=== PATIENT | female | born 1975 | race American Indian/Alaskan Native ===

== ENCOUNTER 2017-09-10 22:51 | Emergency (ER) | payer MEDICAID ==
[2017-09-10] MEDS ORDERED: Ondansetron 4 MG Tab.DIS PO ONE (22:52)
[2017-09-10] MEDS ORDERED: Phenazopyridine 95 MG Tab PO ONE (22:52)
[2017-09-10 23:10] VITALS: BP 132/62
[2017-09-10] MEDS ORDERED: Ondansetron 4 MG/2 ML SDV IV ONE (23:13)
[2017-09-10 23:45] LABS: CHLORIDE,CL 108 mmol/L (101-111); SODIUM,NA 138 mmol/L (135-145)
[2017-09-11] MEDS ORDERED: Ciprofloxacin 500 MG Tab PO ONE (00:10)
[2017-09-11] MEDS ORDERED: Potassium Chloride 10 MEQ Tab.ER PO ONE (00:10)
[2017-09-11] MEDS ORDERED: Phenazopyridine 95 MG Tab PO ONE (00:10)
[2017-09-11] MEDS ORDERED: Ketorolac 30 MG/ML SDV IVPUSH ONE (00:10)
[2017-09-11] MEDS ORDERED: Ondansetron 4 MG Tab.DIS ONE (00:54)
[2017-09-11] MEDS ORDERED: Phenazopyridine 95 MG Tab ONE (00:54)
--- NOTE | 2017-09-11 01:06 | EDM.PDOC ---
ED HPI GENERAL MEDICAL PROBLEM - General Chief Complaint: Flank Pain Stated Complaint: KIDNEY PROBLEM [id number] Time Seen by Provider: 09/10/17 23:10 Source of Information: Reports: Patient History Limitations: Reports: No Limitations - History of Present Illness INITIAL COMMENTS - FREE TEXT/NARRATIVE: ED with c/o kidney infection, has had flank pain today, lower abdominal pain and burning with urination for 2 days. Chills and sharp pain with urination tonight. Has been hospitalized in past with infections. 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: Musculoskeletal History: Reports: Back Pain, Chronic, Neck Pain, Chronic Psychiatric History: Reports: Depression Hematologic History: Reports: Anemia, Other (See Below) Other Hematologic History: Has NOT been taking iron supplements Social & Family History - Family History Family Medical History: Noncontributory - Tobacco Use Smoking Status *Q: Former Smoker Used Tobacco, but Quit: No Second Hand Smoke Exposure: No - Caffeine Use Caffeine Use: Reports: Soda - Alcohol Use Days Per Week of Alcohol Use: 0 Date of Last Drink: 09/10/17 - Recreational Drug Use Recreational Drug Use: No ED ROS GENERAL - Review of Systems Review Of Systems: ROS reveals no pertinent complaints other than HPI. Constitutional: Reports: Chills HEENT: Reports: No Symptoms Respiratory: Reports: No Symptoms Cardiovascular: Reports: No Symptoms Endocrine: Reports: Fatigue GI/Abdominal: Reports: Abdominal Pain, Decreased Appetite, Nausea. Denies: Vomiting : Reports: Dysuria, Flank Pain, Frequency, Pain, Urgency Musculoskeletal: Reports: No Symptoms ED EXAM, RENAL/ - Physical Exam Exam: See Below Exam Limited By: No Limitations General Appearance: Alert, Mild Distress Eye Exam: Bilateral Eye: EOMI Ears: Normal External Exam Nose: Normal Inspection Throat/Mouth: Normal Inspection Head: Atraumatic, Normocephalic Neck: Normal Inspection Respiratory/Chest: No Respiratory Distress, Lungs Clear, Normal Breath Sounds Cardiovascular: Normal Peripheral Pulses, Regular Rate, Rhythm GI/Abdominal: Normal Bowel Sounds, Soft, Tender (suprapubic). No: Distended, Guarding Back Exam: CVA Tenderness (L), CVA Tenderness (R) Extremities: Normal Inspection Neurological: Alert, Oriented, Normal Cognition Psychiatric: Normal Affect, Normal Mood Skin Exam: Warm, Dry, Intact, Normal Color Course - Vital Signs Last Recorded V/S: Last Vital Signs Temp 98 F 09/10/17 23:00 Pulse 93 09/10/17 23:00 Resp 20 09/10/17 23:00 BP 132/62 09/10/17 23:00 Pulse Ox 100 09/10/17 23:00 - Orders/Labs/Meds Labs: Laboratory Tests 09/10/17 09/10/17 09/10/17 Range/Units 21:55 23:18 23:18 WBC 9.3 (5.0-10.0) 10^3/uL RBC 4.34 (4.2-5.4) 10^6/uL Hgb 12.1 D (12.0-16.0) g/dL Hct 37.0 (37.0-47.0) % MCV 85.3 D (80-100) fL MCH 27.9 (27.0-34.0) pg MCHC 32.7 L (33.0-35.0) g/dL Plt Count 246 (150-450) 10^3/uL Neut % (Auto) 80.9 H (42.2-75.2) % Lymph % (Auto) 11.6 L (20.5-50.1) % [place] % (Auto) 5.5 (2-8) % Eos % (Auto) 1.9 (1.0-3.0) % Baso % (Auto) 0.1 (0.0-1.0) % Sodium 138 (135-145) mmol/L Potassium 3.2 L (3.6-5.0) mmol/L Chloride 108 (101-111) mmol/L Carbon Dioxide 22.0 (21.0-31.0) mmol/L Anion Gap 11.2 BUN 19 H (7-18) mg/dL Creatinine 0.7 (0.6-1.3) mg/dL Est Cr Clr Drug Dosing 102.85 mL/min Estimated GFR (MDRD) > 60 BUN/Creatinine Ratio 27.14 Glucose 119 H (74-105) mg/dL Lactic Acid (0.5-2.2) mmol/L Calcium 8.0 L (8.4-10.2) mg/dl Total Bilirubin 0.6 (0.2-1.0) mg/dL AST 17 (10-42) IU/L ALT 14 (10-60) IU/L Alkaline Phosphatase 58 (42-121) IU/L Total Protein 7.2 (6.7-8.2) g/dl Albumin 3.9 (3.2-5.5) g/dl Globulin 3.3 Albumin/Globulin Ratio 1.18 Urine Color Yellow (YELLOW) Urine Appearance Cloudy (CLEAR) Urine pH 5.0 (5.0-9.0) Ur Specific [place] >= 1.030 (1.005-1.030) Urine Protein 30 H (NEGATIVE) Urine Glucose (UA) Negative (NEGATIVE) Urine Ketones 15 H (NEGATIVE) Urine Occult Blood Negative (NEGATIVE) Urine Nitrite Negative (NEGATIVE) Urine Bilirubin Small H (NEGATIVE) Urine Urobilinogen 0.2 (0.2-1.0) mg/dL Ur Leukocyte Esterase Trace H (NEGATIVE) Urine RBC 0-5 /HPF Urine WBC 10-20 H (0-5/HPF) /HPF Ur Epithelial Cells Moderate H /HPF Urine Bacteria Many H (0-FEW/HPF) /HPF 09/10/17 Range/Units 23:18 WBC (5.0-10.0) 10^3/uL RBC (4.2-5.4) 10^6/uL Hgb (12.0-16.0) g/dL Hct (37.0-47.0) % MCV (80-100) fL MCH (27.0-34.0) pg MCHC (33.0-35.0) g/dL Plt Count (150-450) 10^3/uL Neut % (Auto) (42.2-75.2) % Lymph % (Auto) (20.5-50.1) % [place] % (Auto) (2-8) % Eos % (Auto) (1.0-3.0) % Baso % (Auto) (0.0-1.0) % Sodium (135-145) mmol/L Potassium (3.6-5.0) mmol/L Chloride (101-111) mmol/L Carbon Dioxide (21.0-31.0) mmol/L Anion Gap BUN (7-18) mg/dL Creatinine (0.6-1.3) mg/dL Est Cr Clr Drug Dosing mL/min Estimated GFR (MDRD) BUN/Creatinine Ratio Glucose (74-105) mg/dL Lactic Acid 0.9 (0.5-2.2) mmol/L Calcium (8.4-10.2) mg/dl Total Bilirubin (0.2-1.0) mg/dL AST (10-42) IU/L ALT (10-60) IU/L Alkaline Phosphatase (42-121) IU/L Total Protein (6.7-8.2) g/dl Albumin (3.2-5.5) g/dl Globulin Albumin/Globulin Ratio Urine Color (YELLOW) Urine Appearance (CLEAR) Urine pH (5.0-9.0) Ur Specific [place] (1.005-1.030) Urine Protein (NEGATIVE) Urine Glucose (UA) (NEGATIVE) Urine Ketones (NEGATIVE) Urine Occult Blood (NEGATIVE) Urine Nitrite (NEGATIVE) Urine Bilirubin (NEGATIVE) Urine Urobilinogen (0.2-1.0) mg/dL Ur Leukocyte Esterase (NEGATIVE) Urine RBC /HPF Urine WBC (0-5/HPF) /HPF Ur Epithelial Cells /HPF Urine Bacteria (0-FEW/HPF) /HPF Meds: Medications Discontinued Medications Generic Name Dose Route Start Last Admin Trade Name Freq PRN Reason Stop Dose Admin Ciprofloxacin 500 mg 09/11/17 00:10 09/11/17 00:21 Ciprofloxacin Hcl PO 09/11/17 00:11 500 mg ONETIME ONE Administration Ketorolac Tromethamine 30 mg 09/11/17 00:10 09/11/17 00:21 Toradol IVPUSH 09/11/17 00:11 30 mg ONETIME ONE Administration Ondansetron HCl 4 mg 09/10/17 23:13 09/10/17 23:24 Zofran IV 09/10/17 23:14 4 mg ONETIME ONE Administration Ondansetron HCl Confirm 09/11/17 00:54 Zofran Odt Administered 09/11/17 00:55 Dose 8 mg .ROUTE .STK-MED ONE Ondansetron HCl 8 mg 09/10/17 22:52 Zofran Odt PO 09/10/17 22:53 .STK-MED ONE Phenazopyridine HCl 190 mg 09/11/17 00:10 09/11/17 00:21 Urinary Pain Relief PO 09/11/17 00:11 190 mg ONETIME ONE Administration Phenazopyridine HCl Confirm 09/11/17 00:54 Urinary Pain Relief Administered 09/11/17 00:55 Dose 190 mg .ROUTE .STK-MED ONE Phenazopyridine HCl 190 mg 09/10/17 22:52 Urinary Pain Relief PO 09/10/17 22:53 .STK-MED ONE Potassium Chloride 20 meq 09/11/17 00:10 09/11/17 00:21 Klor-Con 10 PO 09/11/17 00:11 20 meq ONETIME ONE Administration Departure - Departure Time of Disposition: 01:03 Disposition: Home, Self-Care 01 Condition: Good, Fair Clinical Impression: Pyelonephritis - Discharge Information Instructions: Pyelonephritis, Adult, [id number] Referrals: Shelley Antunez NP [Primary Care Provider] - Forms: ED Department Discharge Additional Instructions: zofran 4mg ODT one every 6 hours as needed for nausea pyridium 200mg one every 8 hours as needed for urinary symptoms Cipro 500mg one twice daily for one week clinic follow up mid week, sooner if symptoms worsen tylenol or ibuprofen for discomfort
== END 2017-09-11 01:10 | disposition home or self-care (01) ==
LOC: DL.ED 22:51
DX: N12 Tubulo-interstitial nephritis, not specified as acute or chronic (principal); Z88.0 Allergy status to penicillin; Z79.899 Other long term (current) drug therapy; Z87.891 Personal history of nicotine dependence
CPT/HCPCS: 36415; 80053; 81001; 83605; 85025; 87086; 96374; 96375; 99284; A9270; J1885; J2405

== ENCOUNTER 2017-12-18 13:52 | Emergency (ER) | payer MEDICAID ==
[2017-12-18 13:59] VITALS: BP 101/55
--- NOTE | 2017-12-18 14:24 | EDM.PDOC ---
ED HPI GENERAL MEDICAL PROBLEM - General Chief Complaint: Laceration Stated Complaint: [id number] SLIT FINGER OPEN AT HOME Time Seen by Provider: 12/18/17 14:05 Source of Information: Reports: Patient History Limitations: Reports: No Limitations - History of Present Illness INITIAL COMMENTS - FREE TEXT/NARRATIVE: This 42 yo female patient reports to the ED with a laceration to her right thumb. The patient reports that her injury happened at about 0100 this morning ( 13 hours prior to reporting to the ED). The patient reports that she was washing dishes when a bowl broke and cut her hand. Onset: Today Onset Date: 12/18/17 Onset Time: 01:00 Duration: Constant Location: Reports: Upper Extremity, Right Quality: Reports: Ache, Dull Severity: Mild Improves with: Reports: None Worsens with: Reports: None Associated Symptoms: Reports: No Other Symptoms Right 1-Thumb Pain Score (Numeric/FACES): 5 - Related Data Allergies Allergy/AdvReac Type Severity Reaction Status Date / Time Penicillins Allergy Nausea and Verified 12/18/17 13:59 Vomiting Home Meds: Home Meds . 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 ED EXAM, SKIN/RASH Exam: See Below Exam Limited By: No Limitations General Appearance: Alert, WD/WN, Mild Distress Eye Exam: Bilateral Eye: EOMI, Normal Inspection, PERRL Ears: Normal External Exam, Normal Canal, Hearing Grossly Normal, Normal TMs Nose: Normal Inspection, Normal Mucosa, No Blood Throat/Mouth: Normal Inspection, Normal Lips, Normal Teeth, Normal Gums, Normal Oropharynx, Normal Voice, No Airway Compromise Head: Atraumatic, Normocephalic Neck: Normal Inspection, Supple, Non-Tender, Full Range of Motion Respiratory/Chest: No Respiratory Distress, Lungs Clear, Normal Breath Sounds, No Accessory Muscle Use, Chest Non-Tender Cardiovascular: Normal Peripheral Pulses, Regular Rate, Rhythm, No Edema, No Gallop, No JVD, No Murmur, No Rub GI/Abdominal: Normal Bowel Sounds, Soft, Non-Tender, No Organomegaly, No Distention, No Abnormal Bruit, No Mass (Female) Exam: Deferred Rectal (Female) Exam: Deferred Back Exam: Normal Inspection, Full Range of Motion, NT Extremities: Normal Inspection, Normal Range of Motion, Non-Tender, No Pedal Edema, Normal Capillary Refill Neurological: Alert, Oriented, CN II-XII Intact, Normal Cognition, Normal Gait, Normal Reflexes, No Motor/Sensory Deficits Psychiatric: Normal Affect, Normal Mood Skin: Warm, Dry, Intact, Normal Color, No Rash Location, Skin: Upper Extremity, Right (right thumb laceration.) Characteristics: Linear Lymphatic: No Adenopathy ED SKIN PROCEDURES - Laceration/Wound Repair Right Finger Lac/Wound length In cm: 2.0 Appearance: Subcutaneous Distal NVT: Neuro & Vascular Intact Skin Prep: Chlorhexidine (Hibiciens) Exploration/Debridement/Repair: Wound Explored, In a Bloodless Field Closed with: Steri-Strips Sterile Dressing Applied: Nurse Tetanus Status Addressed: Yes Complications: No Course - Vital Signs Last Recorded V/S: Last Vital Signs Temp 36.8 C 12/18/17 13:56 Pulse 69 12/18/17 13:56 Resp 18 12/18/17 13:56 BP 101/55 L 12/18/17 13:56 Pulse Ox 99 12/18/17 13:56 Departure - Departure Time of Disposition: 14:24 Disposition: Home, Self-Care 01 Condition: Good Clinical Impression: Laceration of right thumb Qualifiers: Encounter type: initial encounter Damage to nail status: without damage Foreign body presence: without foreign body Qualified Code(s): S61.011A - Laceration without foreign body of right thumb without damage to nail, initial encounter - Discharge Information Instructions: Laceration Care, Adult, [id number], Stitches, [place], or Adhesive Wound Closure, [id number] Care Plan Goals: The patient was advised of the examination results during the visit. The patient 's wound was closed with steri-strips while in the ED. The patient was encouraged to keep the area clean and dry over the next 24 hours. If the patient has any additional symptoms or concerns, the patient should follow-up with her primary care facility or return to the emergency department.
== END 2017-12-18 14:29 | disposition home or self-care (01) ==
LOC: DL.ED 13:52
DX: S61.011A Laceration without foreign body of right thumb without damage to nail, initial encounter (principal); Z88.0 Allergy status to penicillin; W26.8XXA Contact with other sharp object(s), not elsewhere classified, initial encounter; Y93.G1 Activity, food preparation and clean up
CPT/HCPCS: 12001; 40830; 99283

== ENCOUNTER 2019-06-27 08:01 | Day surgery (SDC) | payer MEDICAID, OTHER ==
[~2019-06-27 08:01] MED LIST: Clindamycin Phosphate 600 MG in Sodium Chloride 0.9% 100 ML IV ONE; Lactated Ringers 1,000 ML IV SCH; Sodium Chloride 0.9% 10 ML Syringe FLUSH PRN
[2019-06-27] MEDS ORDERED: Propofol 1,000 MG/100 ML SDV IV ONE (08:02)
[2019-06-27] MEDS ORDERED: fentaNYL 100 MCG/2 ML SDV IV ONE (08:02)
[2019-06-27] MEDS ORDERED: Midazolam 1 MG/ML 2 ML SDV IV ONE (08:02)
[2019-06-27] MEDS ORDERED: Ondansetron 4 MG/2 ML SDV IV ONE (08:02)
[2019-06-27] MEDS ORDERED: Bupivacaine 0.5% 30 ML SDV ONE ×2 (08:02→09:35)
[2019-06-27] MEDS ORDERED: Lidocaine 1% 30 ML SDV ONE ×2 (08:02→09:35)
[2019-06-27] MEDS ORDERED: Ketorolac 30 MG/ML SDV IVPUSH ONE (08:02)
[2019-06-27] MEDS ORDERED: Clindamycin Phosphate 600 MG/4 ML SDV ONE (08:41)
[2019-06-27] MEDS ORDERED: Sodium Chloride 0.9% 100 ML ONE (08:41)
[2019-06-27] MEDS ORDERED: Bupivacaine 0.5% 30 ML SDV INJECT ONE ×3 (10:18→11:48)
[2019-06-27] MEDS ORDERED: Lidocaine 1% 30 ML SDV INJECT ONE ×3 (10:18→11:48)
[2019-06-27 12:07] VITALS: PULSE 67
[2019-06-27] MEDS ORDERED: Acetaminophen/oxyCODONE 325-5 MG Tab PO PRN (12:22)
--- NOTE | 2019-06-27 12:24 | PCM.OPNOTE ---
- General Post-Op/Procedure Note Date of Surgery/Procedure: 06/27/19 Operative Procedure(s): right foot 1st metatarsal osteotomy/bunionectomy and right foot plantar fascia release Pre Op Diagnosis: right foot bunion and plantar fasciitis Post-Op Diagnosis: morgan Anesthesia Technique: Local, MAC Primary Surgeon: Hina Vazquez Stephens Anesthesia Provider: Juan Monahan EBL in mLs: 5 Complications: none Condition: Good Free Text/Narrative:: Intake & Output 06/26/19 06/27/19 06/27/19 22:59 06:59 14:59 Intake Total 100 Balance 100 Pt tolerated procedure well and was transported to recovery with vascular status intact to right foot. stoney 3.0 cannulated screws to 1st metatarsal. Well padded compression dressing applied with foot in neutral DF.
[2019-06-27 13:46] VITALS: BP 105/68
--- NOTE | 2019-06-28 09:30 | OR ---
DATE: 06/27/2019 PREOPERATIVE DIAGNOSES: 1. Right foot painful bunion. 2. Right foot chronic plantar fasciitis. POSTOPERATIVE DIAGNOSES: 1. Right foot painful bunion. 2. Right foot chronic plantar fasciitis. PROCEDURES PERFORMED: 1. Right foot 1st metatarsal osteotomy/bunionectomy. 2. Right foot plantar fascia release. ANESTHESIA: Local MAC with preoperative local block of 10 mL 1:1 mixture of 1% lidocaine plain and 0.5% Marcaine plain. TOURNIQUET TIME: 83 minutes, pneumatic ankle tourniquet. ESTIMATED BLOOD LOSS: Minimal. SPECIMENS: None. COMPLICATIONS: None. INDICATIONS: Dai is a 43-year-old female who presents with painful bunion and chronic plantar fasciitis of the right foot. She has been dealing with these issues for at least 10 years now. She was originally scheduled to have bunionectomy in [facility] in 2011, but ended up cancelling that and has rescheduled and canceled several times since then. Now she is ready to get the surgery done on both her bunion and plantar fascia. She has failed conservative options. X-rays of the right foot revealed medially deviated 1st metatarsal with IM angle of approximately 14.5 degrees, cavus foot structure. No fractures present. She does have a plantar calcaneal spur. The patient voiced good understanding of proposed procedure and possible complications and elects to have surgery at this time. DESCRIPTION OF PROCEDURE: The patient was taken to the operating room lying in supine position. After adequate anesthesia induction as described above, the right foot was prepped and draped in usual sterile fashion. A pneumatic ankle tourniquet was inflated to 250 mmHg. Attention was then directed to the dorsal aspect of the 1st metatarsophalangeal joint where an approximately 6 cm linear incision was made. Sharp and blunt dissection were performed down to the level of the joint with care to retract all the neurovascular structures. An inverted L capsulotomy was made to expose the distal 1st metatarsal. The 1st metatarsophalangeal joint was inspected. There was noted to be a defect at the medial central aspect and this was drilled with a 0.062 inch K-wire. Remainder of the joint appeared healthy. A sagittal saw was used to make a chevron-type osteotomy in a fashion that would allow maintenance of the length on lateral transposition of the capital fragment. The capital fragment was transposed laterally approximately 8 mm and impacted to bring the hallux in a rectus alignment. A lateral release was performed. K-wires from the Warren screw set were used as temporary fixation and 2 partially-threaded cannulated [place] 3.0 screws were then placed across the osteotomy site. The osteotomy site was noted to be stable with all forces applied and good fluid range of motion of the 1st metatarsophalangeal joint. The hallux was noted to be in a near rectus alignment at this time. Fluoroscopy was used throughout the procedure to verify proper reduction of the deformity and fixation. The medial shelf was removed with a sagittal saw, and a medial capsulorrhaphy was performed. The area was irrigated with copious amounts of sterile saline. Deep closure was completed with 3-0 Vicryl, and skin closure was completed with 4-0 nylon. Attention was directed to the medial plantar heel where an approximately 3 cm transverse incision was made just distal to the plantar fat pad to gain access to the plantar fascial band. Sharp and blunt dissection were performed down to the level of the plantar fascia band. The plantar fascia band was incised at the insertion site of the heel and approximately 1 cm sq section was taken out. No further tightness was noted in this area upon palpation. The area was irrigated with copious amounts of sterile saline. Deep closure was completed with 0 Vicryl and skin closure was completed with 4-0 nylon. The incision sites were dressed with Xeroform, fluffs, Webril, and Tray wrap. She was placed into a CAM boot with her foot in a neutral position to ensure stretching at that plantar fascia. She was transferred to the recovery room with vital signs stable and vascular status intact as noted by immediate hyperemia to all digits upon deflation of the ankle tourniquet. She was then discharged home when she met hospital discharge requirements. [facility] /[id number]
== END 2019-06-27 14:00 | disposition home or self-care (01) ==
LOC: DL.SDS 08:01
PROVIDERS: ATTEND Podiatrist
DX: M21.611 Bunion of right foot (principal); M72.2 Plantar fascial fibromatosis; F32.9 Major depressive disorder, single episode, unspecified; Z87.891 Personal history of nicotine dependence; Z91.030 Bee allergy status; Z88.0 Allergy status to penicillin
CPT/HCPCS: A9270-GY; C1713; J1885; J2001; J2250; J2405; J2704; J3010; J3490; J7050; J7120

== ENCOUNTER 2020-11-10 17:29 | Emergency (ER) | payer OTHER ==
[2020-11-10 17:47] VITALS: BP 102/59; PULSE 70
[2020-11-10 18:50] LABS: ANION GAP 12.1 mEq/L (7-13); CHLORIDE,CL 105 mmol/L (98-107); SODIUM,NA 140 mmol/L (136-145)
[2020-11-10] MEDS ORDERED: predniSONE 20 MG Tab PO ONE (19:00)
[2020-11-10] MEDS ORDERED: Azithromycin 250 MG Tab PO ONE (19:00)
--- NOTE | 2020-11-10 19:06 | EDM.PDOC ---
Scribed by Elsie Edwards 11/10/20 [address] Lopez MD ED HPI GENERAL MEDICAL PROBLEM - General Chief Complaint: Skin Complaint Stated Complaint: INFECTED SPIDER BITE Time Seen by Provider: 11/10/20 17:42 Source of Information: Reports: Patient, RN, RN Notes Reviewed History Limitations: Reports: No Limitations - History of Present Illness INITIAL COMMENTS - FREE TEXT/NARRATIVE: Patient presents to ED by POV stating she had a spider bite in right lower leg since May. She was at clinic last week. Patient states sight has grown and now has cramping in [place] and foot. Does not know what meds the clinic prescribed for her. Onset: Gradual Duration: Getting Worse Location: Reports: Lower Extremity, Right Quality: Reports: Ache Severity: Moderate Improves with: Reports: None Worsens with: Reports: None Associated Symptoms: Reports: No Other Symptoms Left Leg Pain Score (Numeric/FACES): 6 - Related Data Allergies Allergy/AdvReac Type Severity Reaction Status Date / Time bee pollen Allergy Rash Verified 11/10/20 17:45 Penicillins Allergy Nausea and Verified 11/10/20 17:45 Vomiting Home Meds: Home Meds . [No Known Home Meds] 12/18/17 [History] Past Medical History - Past Health History Medical/Surgical History: Denies Medical/Surgical History HEENT History: Reports: Impaired Vision Cardiovascular History: Reports: None Respiratory History: Reports: None Gastrointestinal History: Reports: GERD Other Gastrointestinal History: GERD WITH Genitourinary History: Reports: Pyelonephritis, UTI, Recurrent [employer] [place] [employer] [place] History: Reports: , Spontaneous Musculoskeletal History: Reports: Back Pain, Chronic, Neck Pain, Chronic, Other (See Below) Other Musculoskeletal History: has a spur in her neck Neurological History: Reports: Headaches, Chronic Psychiatric History: Reports: Anxiety, Depression Endocrine/Metabolic History: Reports: None Hematologic History: Reports: Anemia, Other (See Below) Other Hematologic History: Has NOT been taking iron supplements Immunologic History: Reports: None Oncologic (Cancer) History: Reports: None Dermatologic History: Reports: None - Infectious Disease History Infectious Disease History: Reports: Chicken Pox - Past Surgical History Head Surgeries/Procedures: Reports: None HEENT Surgical History: Reports: None Cardiovascular Surgical History: Reports: None Respiratory Surgical History: Reports: None GI Surgical History: Reports: None Female Surgical History: Reports: D&C, Tubal Ligation Musculoskeletal Surgical History: Reports: None Social & Family History - Family History Family Medical History: No Pertinent Family History - Caffeine Use Caffeine Use: Reports: Soda Caffeine Use Comment: 12 oz daily ED ROS GENERAL - Review of Systems Review Of Systems: Comprehensive ROS is negative, except as noted in HPI. ED EXAM, ANIMAL BITE - Physical Exam Exam: See Below Exam Limited By: No Limitations General Appearance: Alert, WD/WN, No Apparent Distress Eye Exam: Bilateral Eye: EOMI, Normal Inspection, PERRL Ears: Normal External Exam, Normal Canal, Hearing Grossly Normal, Normal TMs Nose: Normal Inspection, Normal Mucosa, No Blood Throat/Mouth: Normal Inspection, Normal Lips, Normal Teeth, Normal Gums, Normal Oropharynx, Normal Voice, No Airway Compromise Head: Atraumatic, Normocephalic Neck: Normal Inspection, Supple, Non-Tender, Full Range of Motion Respiratory/Chest: No Respiratory Distress, Lungs Clear, Normal Breath Sounds, No Accessory Muscle Use, Chest Non-Tender Cardiovascular: Normal Peripheral Pulses, Regular Rate, Rhythm, No Edema, No Gallop, No JVD, No Murmur, No Rub GI/Abdominal: Normal Bowel Sounds, Soft, Non-Tender, No Organomegaly, No Distention, No Abnormal Bruit, No Mass (Female) Exam: Deferred Rectal (Female) Exam: Deferred Back Exam: Normal Inspection, Full Range of Motion, NT Neurological: Alert, Oriented, CN II-XII Intact, Normal Cognition, Normal Gait, Normal Reflexes, No Motor/Sensory Deficits Psychiatric: Normal Affect, Normal Mood Course - Vital Signs Last Recorded V/S: Last Vital Signs Temp 98.1 F 11/10/20 17:40 Pulse 70 11/10/20 17:40 Resp 14 11/10/20 17:40 BP 102/59 L 11/10/20 17:40 Pulse Ox 97 11/10/20 17:40 - Orders/Labs/Meds Labs: Laboratory Tests 11/10/20 11/10/20 11/10/20 Range/Units 18:20 18:20 18:20 WBC 5.2 (5.0-10.0) 10^3/uL RBC 4.17 L (4.2-5.4) 10^6/uL Hgb 12.8 (12.0-16.0) g/dL Hct 39.2 (37.0-47.0) % MCV 94.0 D (80-100) fL MCH 30.7 (27.0-34.0) pg MCHC 32.7 L (33.0-35.0) g/dL Plt Count 235 (150-450) 10^3/uL Neut % (Auto) 51.9 (42.2-75.2) % Lymph % (Auto) 35.7 (20.5-50.1) % [place] % (Auto) 8.3 H (2-8) % Eos % (Auto) 3.5 H (1.0-3.0) % Baso % (Auto) 0.6 (0.0-1.0) % D-Dimer, Quantitative 449 H (0-400) ng/mL Sodium 140 (136-145) mmol/L Potassium 4.1 (3.5-5.1) mmol/L Chloride 105 (98-107) mmol/L Carbon Dioxide 27 (21-32) mmol/L Anion Gap 12.1 (7-13) mEq/L BUN 11 (7-18) mg/dL Creatinine 0.82 (0.55-1.02) mg/dL Est Cr Clr Drug Dosing 81.11 mL/min Estimated GFR (MDRD) > 60 BUN/Creatinine Ratio 13.4 (No establ ref range) Glucose 82 (70-99) mg/dL Calcium 7.8 L (8.5-10.1) mg/dL Magnesium 2.0 (1.8-2.4) mg/dL Total Bilirubin 0.3 (0.2-1.0) mg/dL AST 9 L (15-37) U/L ALT 19 (14-59) U/L Alkaline Phosphatase 57 (46-116) U/L C-Reactive Protein 0.5 (0.0-0.9) mg/dL Total Protein 6.8 (6.4-8.2) g/dL Albumin 3.5 (3.4-5.0) g/dL Globulin 3.3 Albumin/Globulin Ratio 1.1 Meds: Medications Discontinued Medications Generic Name Dose Route Start Last Admin Trade Name Freq PRN Reason Stop Dose Admin Azithromycin 500 mg 11/10/20 19:00 Azithromycin 250 Mg Tab PO 11/10/20 19:01 ONETIME ONE Prednisone 60 mg 05/11/21 19:00 Prednisone 20 Mg Tab PO 11/10/20 19:01 ONETIME ONE Departure - Departure Time of Disposition: 19:02 Disposition: Home, Self-Care 01 Condition: Good Clinical Impression: Pruritic dermatitis - Discharge Information *PRESCRIPTION DRUG MONITORING PROGRAM REVIEWED*: Not Applicable *COPY OF PRESCRIPTION DRUG MONITORING REPORT IN PATIENT ÁNGEL: Not Applicable Instructions: Pruritus, Rash, Adult, [id number] Forms: ED Department Discharge Additional Instructions: Rx: Zithromax 500mg Rx: Prednisone 20mg Use over the counter Benadryl cream to right leg rash every 6 hours as needed for itching. Follow up at [facility] in one week with Dr. Foley for recheck and consideration of a skin biopsy. Sepsis Event Note (ED) - Focused Exam Vital Signs: Vital Signs Temp Pulse Resp BP Pulse Ox 11/10/20 17:40 98.1 F 70 14 102/59 L 97 I have read and agree with the documentation that has been completed regarding this visit. By signing this record, I attest that the documentation was completed in my physical presence and is an accurate record of the encounter.
== END 2020-11-10 19:18 | disposition home or self-care (01) ==
LOC: DL.ED 17:29
DX: L30.9 Dermatitis, unspecified (principal); L29.9 Pruritus, unspecified; Z88.0 Allergy status to penicillin; Z91.030 Bee allergy status
CPT/HCPCS: 36415; 80053; 83735; 85025; 85379; 86140; 99283; A9270-GY; J7512

== ENCOUNTER 2023-03-27 12:56 | Emergency (ER) | payer MEDICAID, OTHER ==
[2023-03-27] MEDS ORDERED: Ondansetron 4 MG/2 ML SDV IVPUSH ONE (13:20)
[2023-03-27] MEDS ORDERED: Ketorolac 30 MG/ML SDV IVPUSH ONE (13:20)
[2023-03-27] MEDS ORDERED: Lactated Ringers 1,000 ML IV ONE (13:20)
[2023-03-27] MEDS ORDERED: diphenhydrAMINE 50 MG/ML SDV IVPUSH ONE (13:20)
[2023-03-27 14:40] VITALS: BP 105/56; PULSE 62
== END 2023-03-27 14:48 | disposition home or self-care (01) ==
LOC: DL.ED 12:56
DX: G43.719 Chronic migraine without aura, intractable, without status migrainosus (principal); Z88.0 Allergy status to penicillin; Z91.09 Other allergy status, other than to drugs and biological substances
CPT/HCPCS: 96374; 96375; 99283-25; J1200; J1885; J2405; J7120